=== PATIENT | female | born 1975 | race Caucasian/White ===

== ENCOUNTER 2018-08-01 12:49 | Emergency (ER) | payer BC ==
--- NOTE | 2018-08-01 13:52 | ED ---
Lower Extremity - HPI Summary HPI Summary: 42 year old female with left ankle pain since yesterday. She had by accident stepped through a fence and twisting her ankle and felt a pop. She denies any previous injury to the area. She does have a hip replacement on that side. No numbness or tingling. she has been ambulating on that leg. - History of Current Complaint Chief Complaint: EDExtremityLower Stated Complaint: LEFT ANKLE INJURY Time Seen by Provider: 08/01/18 13:15 Pain Intensity: 6 - Allergies/Home Medications Allergies/Adverse Reactions: Allergies Allergy/AdvReac Type Severity Reaction Status Date / Time ENVIRONMENTAL/SEASONAL Allergy Unknown Uncoded 08/01/18 13:00 HAYFEVER Reaction Details PMH/Surg Hx/FS Hx/Imm Hx Endocrine/Hematology History: Denies: Hx Anticoagulant Therapy Cardiovascular History: Reports: Other Cardiovascular Problems/Disorders - DVT LEFT LEG AFTER SURGERY 2010 History: Reports: Hx Kidney Stones - FREQUENTLY MAKES, - USE FLUID PILL TO HELP WITH FLUID OUTPUT Musculoskeletal History: Reports: Other Musculoskeletal History - 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 [place]. [id number] MULTIPLE(12) KIDNEY STONE SURGERIES, LAST ONE [facility] 2012 Hx Anesthesia Reactions: Yes - GENERAL ANESTHESIA - NAUSEA AND VOMITING Infectious Disease History: No Infectious Disease History: Denies: Traveled Outside the [place] in Last 30 Days - Family History Known Family History: Positive: Non-Contributory - Social History Alcohol Use: None Substance Use Type: Reports: None Smoking Status (MU): Never Smoked Tobacco Review of Systems Negative: Fever Negative: Chest Pain Negative: Shortness Of Breath Positive: Myalgia - left ankle pain All Other Systems Reviewed And Are Negative: Yes Physical Exam Triage Information Reviewed: Yes Vital Signs On Initial Exam: Initial Vitals Temp Pulse Resp BP Pulse Ox 98.0 F 71 16 134/77 97 08/01/18 12:57 08/01/18 12:57 08/01/18 12:57 08/01/18 12:57 08/01/18 12:57 Vital Signs Reviewed: Yes Appearance: Positive: Well-Appearing Skin: Positive: Warm, Dry Head/Face: Positive: Normal Head/Face Inspection Eyes: Positive: Normal, Conjunctiva Clear ENT: Positive: Pharynx normal Respiratory/Lung Sounds: Positive: Clear to Auscultation, Breath Sounds Present Cardiovascular: Positive: Normal, RRR Musculoskeletal: Positive: Other - tenderness lateral malleolus of left ankle, good pulses, sensation grossly intact. nontender knee pain Neurological: Positive: Normal Psychiatric: Positive: Normal Procedures - Splinting ankle Location: left ankle Hand-Made Type: orthoglass Splint: posterior walking Pre-Proc Neuro Vasc Exam: normal Post-Proc Neuro Vasc Exam: normal Diagnostics - Vital Signs Vital Signs Temp Pulse Resp BP Pulse Ox 08/01/18 12:57 98.0 F 71 16 134/77 97 - Laboratory Lab Statement: Any lab studies that have been ordered have been reviewed, and results considered in the medical decision making process. - Radiology ankle Radiology Interpretation Completed By: Radiologist Summary of Radiographic Findings: IMPRESSION: OBLIQUE FRACTURE OF THE DISTAL FIBULA WITH WIDENING OF THE TIBIOTALAR INTERVAL. Lower Extremity Course/Dx - Course Course Of Treatment: 42 year old female with left ankle pain since yesterday. She had by accident stepped through a fence and twisting her ankle and felt a pop. She denies any previous injury to the area. She does have a hip replacement on that side. No numbness or tingling. she has been ambulating on that leg. on exam has tenderness left lateral malleolus. neurovascular intact. xray shows fibula fracture with widening of talotibia interval. placed in u splint and posterior walking. told to keep nonweight baring. gave crutches. told to follow up with ortho. gave precautions for compartment syndrome. patient understand and agrees with plan. - Diagnoses Differential Diagnosis/HQI/PQRI: Positive: Fracture (Closed), Sprain, Strain Provider Diagnoses: Fibula fracture Discharge - Sign-Out/Discharge Documenting (check all that apply): Patient Departure - Discharge Plan Condition: Good Disposition: HOME Prescriptions: oxyCODONE/Acetamin 5/325 MG* [Percocet 5/325 TAB*] 1 tab PO Q6H PRN #16 tab MDD 4 PRN Reason: Pain Patient Education Materials: Ankle Fracture (ED) Referrals: Mini Ott MD [Primary Care Provider] - Samantha Wolf MD [Medical Doctor] - Additional Instructions: Use crutches and stay nonweight bearing Keep splint on area and keep dry Call ortho office tomorrow to set up appointment for follow up Use ibuprofen for pain every 6 hours and use narcotic for breakthrough pain every 6 hours Ice, elevate Return to ED if develop numbness or tingling or any new or worsening symptoms - Billing Disposition and Condition Condition: GOOD Disposition: Home
[2018-08-01] MEDS ORDERED: oxyCODONE/Acetamin 5/325 MG* TAB PO ONE (14:10)
[2018-08-01 15:01] VITALS: BP 128/62
== END 2018-08-01 15:00 | disposition home or self-care (01) ==
LOC: ED 12:49
DX: S82.832A Other fracture of upper and lower end of left fibula, initial encounter for closed fracture (principal); X50.1XXA Overexertion from prolonged static or awkward postures, initial encounter; Y92.9 Unspecified place or not applicable; F32.9 Major depressive disorder, single episode, unspecified; Z96.642 Presence of left artificial hip joint
CPT/HCPCS: 99282; A9270-GY